=== PATIENT | male | born 1935 | race African-American/Black ===

== ENCOUNTER 2017-06-09 18:36 | Inpatient (IN) | payer MEDICARE, OTHER ==
[~2017-06-09] VITALS: Ht 177.8 cm; Wt 75.3 kg
[2017-06-09] MEDS ORDERED: ASPIRIN 81MG TABLET PO ONE (19:15)
[2017-06-09 20:42] LABS: BASOPHILS % 0.2 % (0.0-2.0); CHLORIDE 108 mEq/L (98-107); EOSINOPHILS % 0.3 % (0.0-5.0); HEMATOCRIT. 33.8 % (42.0-52.0); HEMOGLOBIN. 11.8 g/dL (14.0-18.0); LYMPHOCYTES % 49.9 % (20.0-50.0); MEAN CORPUSCULAR HEMOGLOBIN 31.1 pg (28.0-32.0); MEAN CORPUSCULAR VOLUME 88.9 fL (80.0-94.0); MEAN PLATELET VOLUME 10.1 fl (7.4-10.4); MONOCYTES % 8.8 % (2.0-8.0); NEUTROPHILS % 40.8 % (40.0-76.0); PLATELET 101 x1000/uL (130-400); RED CELL DISTRIBUTION WIDTH 14.7 % (11.6-14.6)
[2017-06-09 20:44] LABS: INR 1.3
[2017-06-09 20:47] LABS: ETHANOL BLOOD < 10 mg/dL
[2017-06-09] MEDS ORDERED: SODIUM CHLORIDE 0.9% 1000ML BAG (SEPSIS BOLUS) IV ONE (21:15)
[2017-06-09] MEDS ORDERED: MECLIZINE 25MG TABLET PO ONE (21:45)
[2017-06-09 22:49] LABS: CLARITY URINE CLEAR (CLEAR); COLOR URINE YELLOW (YELLOW); KETONES URINE NEGATIVE (NEGATIVE); LEUKOCYTE ESTERASE URINE NEGATIVE (NEGATIVE); NITRITE URINE NEGATIVE (NEGATIVE); OCCULT BLOOD URINE NEGATIVE (NEGATIVE); PH URINE >=9.0 (4.5-8.0); PROTEIN URINE NEGATIVE (NEGATIVE); SPECIFIC GRAVITY URINE 1.016 (1.005-1.030)
[2017-06-09 23:00] LABS: *AMPHETAMINES SCREEN URINE NEGATIVE (NEGATIVE); *BARBITURATES SCREEN URINE NEGATIVE (NEGATIVE); *BENZODIAZEPINES SCREEN URINE NEGATIVE (NEGATIVE); *COCAINE SCREEN URINE NEGATIVE (NEGATIVE); CANNABINOID URINE SCREEN NEGATIVE (NEGATIVE); METHADONE URINE SCREEN NEGATIVE (NEGATIVE); OPIATES URINE SCREEN NEGATIVE (NEGATIVE); PHENCYCLIDINE URINE SCREEN NEGATIVE (NEGATIVE)
[2017-06-09] MEDS ORDERED: HYDROCODONE/ACETAMINOPHEN 5/325MG TABLET PO PRN (23:15)
[2017-06-09] MEDS ORDERED: GUAIFENESIN 200MG/10ML SUGAR FREE UDC PO PRN (23:15)
[2017-06-09] MEDS ORDERED: ACETAMINOPHEN 650MG/20.3ML UDC GT PRN (23:15)
[2017-06-09] MEDS ORDERED: DOCUSATE SODIUM 100MG CAPSULE PO PRN (23:15)
[2017-06-09] MEDS ORDERED: ACETAMINOPHEN 325MG TABLET PO PRN (23:15)
[2017-06-09] MEDS ORDERED: ACETAMINOPHEN 650MG SUPP PR PRN (23:15)
[2017-06-09] MEDS ORDERED: CLONIDINE 0.1MG TABLET PO PRN (23:15)
[2017-06-09] MEDS ORDERED: IPRATROPIUM/ALBUTEROL 0.5-3(2.5)MG/3ML NEB INH PRN (23:15)
[2017-06-09] MEDS ORDERED: DIPHENHYDRAMINE 50MG/ML VIAL IV PRN (23:15)
[2017-06-09] MEDS ORDERED: ENOXAPARIN 40MG/0.4ML SYR SUBCUT SCH (23:15)
[2017-06-09] MEDS ORDERED: MAGNESIUM/ALUMINUM HYDROXIDE/SIMETHICONE 30ML UDC PO PRN (23:15)
[2017-06-09] MEDS ORDERED: ONDANSETRON HCL 4MG/2ML VIAL IV PRN (23:15)
[2017-06-09] MEDS ORDERED: NA PHOS,M-B/NA PHOS,DI-BA ENEMA 118ML PR PRN (23:15)
[2017-06-09] MEDS: AMLODIPINE 5MG TABLET PO SCH (23:45)
[2017-06-09] MEDS ORDERED: AMLODIPINE 5MG TABLET PO NR (23:45)
[2017-06-10] VITALS (7 sets, daily range): BP systolic 133–188; BP diastolic 58–76
[2017-06-10] MEDS ORDERED: LEVOFLOXACIN 750MG PREMIX 150 ML IV NR (01:15)
[2017-06-10 05:53] LABS: BASOPHILS % 0.1 % (0.0-2.0); EOSINOPHILS % 0.7 % (0.0-5.0); HEMATOCRIT. 32.5 % (42.0-52.0); HEMOGLOBIN. 10.9 g/dL (14.0-18.0); LYMPHOCYTES % 38.3 % (20.0-50.0); MEAN CORPUSCULAR HEMOGLOBIN 29.9 pg (28.0-32.0); MEAN CORPUSCULAR VOLUME 88.9 fL (80.0-94.0); MEAN PLATELET VOLUME 10.4 fl (7.4-10.4); MONOCYTES % 11.7 % (2.0-8.0); NEUTROPHILS % 49.2 % (40.0-76.0); PLATELET 99 x1000/uL (130-400); RED BLOOD CELL COUNT 3.65 mill/uL (4.7-6.1); RED CELL DISTRIBUTION WIDTH 14.6 % (11.6-14.6)
[2017-06-10] MEDS: SODIUM CHLORIDE 0.9% INJ 3ML FLUSH IVF SCH ×3 (06:26→21:00)
[2017-06-10 06:51] LABS: CHLORIDE 112 mEq/L (98-107)
[2017-06-10 07:00] LABS: CREATINE KINASE 499 IU/L (39-308); HDL CHOLESTEROL 57 mg/dL (40-59); LDL CHOLESTEROL 57 mg/dL (5-100)
[2017-06-10] MEDS: AMLODIPINE 5MG TABLET PO SCH (08:36)
[2017-06-10] MEDS ORDERED: ENOXAPARIN 40MG/0.4ML SYR SUBCUT SCH (09:00)
[2017-06-10 11:02] LABS: T4 FREE 0.93 ng/dL (0.76-1.46)
[2017-06-10] MEDS ORDERED: IOHEXOL-350 100 ML BOTTLE ONE (15:01)
[2017-06-10] MEDS: VALPROIC ACID 250MG CAPSULE PO SCH (15:21)
[2017-06-10] MEDS: AZITHROMYCIN 500 MG TABLET PO SCH (15:21)
[2017-06-10] MEDS: LOSARTAN POTASSIUM 25 MG TABLET PO SCH (15:21)
[2017-06-10] MEDS: TAMSULOSIN HCL 0.4MG SR CAPSULE PO SCH (15:42)
[2017-06-10] MEDS ORDERED: NON FORMULARY PATIENT HOME MED EA XX SCH (16:15)
[2017-06-10] MEDS: FINASTERIDE 5MG TABLET PO SCH (16:23)
[2017-06-10 17:03] LABS: CREATINE KINASE 500 IU/L (39-308)
[2017-06-10] MEDS: SODIUM CHLORIDE 0.45% 1,000 ML IV SCH (17:24)
[2017-06-10] MEDS ORDERED: DOXAZOSIN MESYLATE 2MG TABLET PO SCH (21:00)
[2017-06-10] MEDS ORDERED: TEMAZEPAM 15MG CAPSULE PO PRN (21:00)
[2017-06-11 00:02] VITALS: BP 130/67
[2017-06-11] MEDS: VALPROIC ACID 250MG CAPSULE PO SCH ×2 (03:32→17:41)
[2017-06-11 04:00] VITALS: BP 140/76
[2017-06-11] MEDS: SODIUM CHLORIDE 0.9% INJ 3ML FLUSH IVF SCH ×2 (05:07→14:00)
[2017-06-11 07:36] VITALS: BP 143/70
[2017-06-11] MEDS ORDERED: CITALOPRAM HYDROBROMIDE 20MG TABLET PO SCH (09:00)
[2017-06-11] MEDS: AZITHROMYCIN 500 MG TABLET PO SCH (10:53)
[2017-06-11] MEDS: TAMSULOSIN HCL 0.4MG SR CAPSULE PO SCH (10:54)
[2017-06-11] MEDS: FINASTERIDE 5MG TABLET PO SCH (10:59)
[2017-06-11] MEDS: AMLODIPINE 5MG TABLET PO SCH (11:11)
[2017-06-11 11:36] VITALS: BP 149/67
[2017-06-11 16:22] VITALS: BP 105/49
[2017-06-11] MEDS: SODIUM CHLORIDE 0.45% 1,000 ML IV SCH (17:00)
[2017-06-11] MEDS: LOSARTAN POTASSIUM 25 MG TABLET PO SCH (17:41)
== END 2017-06-11 18:48 | disposition home health service (06) | DRG 202 ==
LOC: ER 18:42 → 6WST 21:31 → ENRESERV 23:36
PROVIDERS: ADMIT Internal Medicine; ATTEND Internal Medicine
DX: J20.9 Acute bronchitis, unspecified (principal); Q28.2 Arteriovenous malformation of cerebral vessels; E87.2 Acidosis; D64.9 Anemia, unspecified; F03.90 Unspecified dementia, unspecified severity, without behavioral disturbance, psychotic disturbance, mood disturbance, and anxiety; G40.909 Epilepsy, unspecified, not intractable, without status epilepticus; H54.7 Unspecified visual loss; I10 Essential (primary) hypertension; N40.1 Benign prostatic hyperplasia with lower urinary tract symptoms; Z85.118 Personal history of other malignant neoplasm of bronchus and lung; Z86.73 Personal history of transient ischemic attack (TIA), and cerebral infarction without residual deficits; Z88.6 Allergy status to analgesic agent; Z90.2 Acquired absence of lung [part of]; Z92.21 Personal history of antineoplastic chemotherapy; Z88.8 Allergy status to other drugs, medicaments and biological substances
CPT/HCPCS: 36415; 70450; 71045; 71275; 80053; 80061; 80165; 80305; 81003; 82550; 82553; 83036; 83605; 83690; 83880; 84153; 84439; 84443; 84484; 85025; 85379; 85610; 87040; 93005; 93306; 93970; G0482; J1200; J1956; J8597; Q9967; A4315

== ENCOUNTER 2017-12-11 16:44 | Inpatient (IN) | payer MEDICARE, OTHER ==
[~2017-12-11] VITALS: Ht 188 cm; Wt 60.8 kg
[2017-12-11] MEDS ORDERED: SODIUM CHLORIDE 0.9% 1000ML BAG (SEPSIS BOLUS) IV ONE (17:30)
[2017-12-11 18:18] LABS: BASOPHILS % 0.3 % (0.0-2.0); EOSINOPHILS % 0.4 % (0.0-5.0); HEMATOCRIT. 33.7 % (42.0-52.0); HEMOGLOBIN. 11.2 g/dL (14.0-18.0); LYMPHOCYTES % 35.7 % (20.0-50.0); MEAN CORPUSCULAR VOLUME 87.3 fL (80.0-94.0); MEAN PLATELET VOLUME 10.3 fl (7.4-10.4); MONOCYTES % 4.7 % (2.0-8.0); NEUTROPHILS % 58.9 % (40.0-76.0); PLATELET 114 x1000/uL (130-400); RED BLOOD CELL COUNT 3.87 mill/uL (4.7-6.1); RED CELL DISTRIBUTION WIDTH 16.8 % (11.6-14.6)
[2017-12-11 18:25] LABS: CHLORIDE 106 mEq/L (98-107); INR 1.2; PROTHROMBIN TIME 11.8 sec (9.1-11.1)
[2017-12-11] MEDS ORDERED: VANCOMYCIN 1 G PREMIX 200 ML IV ONE (18:45)
[2017-12-11] MEDS ORDERED: PIPERACILLIN/TAZ 3.375G PREMIX 50 ML IV ONE (18:45)
[2017-12-11 20:01] LABS: CLARITY URINE CLOUDY (CLEAR); COLOR URINE ORANGE (YELLOW); KETONES URINE 1+ (NEGATIVE); LEUKOCYTE ESTERASE URINE 3+ (NEGATIVE); NITRITE URINE NEGATIVE (NEGATIVE); OCCULT BLOOD URINE 3+ (NEGATIVE); PH URINE >=9.0 (4.5-8.0); PROTEIN URINE 1+ (NEGATIVE); SPECIFIC GRAVITY URINE 1.012 (1.005-1.030)
[2017-12-12] VITALS (18 sets, daily range): BP systolic 120–157; BP diastolic 59–80
[2017-12-12] MEDS ORDERED: DIVA-75 MT (01:26)
[2017-12-12] MEDS ORDERED: SIMV40TA5 MT (01:26)
[2017-12-12] MEDS ORDERED: ALPHAGAN 0.1% OP (01:26)
[2017-12-12] MEDS ORDERED: FINA5TAB11 MT (01:26)
[2017-12-12] MEDS ORDERED: ERGO400C MT (01:26)
[2017-12-12] MEDS ORDERED: XALAO EACHEYE (01:27)
[2017-12-12] MEDS ORDERED: MORPHINE SULFATE 4 MG/ML CPJ (NOT FOR IM USE) IV PRN (02:15)
[2017-12-12] MEDS ORDERED: PIPERACILLIN/TAZ 3.375G PREMIX 50 ML IV SCH (02:15)
[2017-12-12] MEDS: PIPERACILLIN/TAZ 3.375G PREMIX 50 ML IV SCH ×4 (02:59→21:41)
[2017-12-12] MEDS: DEXT 5%/0.45% NACL KCL 20MEQ/L 1,000 ML IV SCH ×2 (03:51→15:26)
[2017-12-12] MEDS ORDERED: VANCOMYCIN 1500MG in DEXTROSE 5% WATER 250ML IV SCH (06:00)
[2017-12-12] MEDS: BRIMONIDINE 0.2% OPHTH DROPS 5ML EACHEYE SCH ×2 (08:16→16:51)
[2017-12-12] MEDS: DIVALPROEX SODIUM 500MG DR TABLET PO SCH ×2 (08:17→16:50)
[2017-12-12] MEDS ORDERED: ALPHAGAN 0.1% OP SCH (09:00)
[2017-12-12 11:42] LABS: AMMONIA 17 uMol/L (<32)
[2017-12-12] MEDS ORDERED: IPRATROPIUM/ALBUTEROL 0.5-3(2.5)MG/3ML NEB HHN PRN (15:00)
[2017-12-12 17:09] LABS: AMMONIA 25 uMol/L (<32)
[2017-12-12] MEDS ORDERED: VANCOMYCIN 750 MG PREMIX 150 ML IV SCH (21:00)
[2017-12-12] MEDS ORDERED: MEDICATION NOT ON FORMULARY EA (Simvastatin 40 MG) PO SCH (21:00)
[2017-12-12] MEDS ORDERED: MEDICATION NOT ON FORMULARY EA (Finasteride 5 MG) PO SCH (21:00)
[2017-12-12] MEDS: IPRATROPIUM/ALBUTEROL 0.5-3(2.5)MG/3ML NEB HHN SCH (21:01)
[2017-12-12] MEDS: LATANOPROST 0.005% OPHTH DROPS 2.5ML EACHEYE SCH (21:51)
[2017-12-12] MEDS: FINASTERIDE 5MG TABLET PO SCH (21:53)
[2017-12-12] MEDS: ATORVASTATIN CALCIUM 20MG TABLET PO SCH (21:53)
[2017-12-13] VITALS (15 sets, daily range): BP systolic 114–150; BP diastolic 50–82
[2017-12-13] MEDS: DEXT 5%/0.45% NACL KCL 20MEQ/L 1,000 ML IV SCH ×3 (01:58→19:30)
[2017-12-13] MEDS: IPRATROPIUM/ALBUTEROL 0.5-3(2.5)MG/3ML NEB HHN SCH ×4 (02:33→20:55)
[2017-12-13] MEDS: PIPERACILLIN/TAZ 3.375G PREMIX 50 ML IV SCH ×4 (04:20→20:47)
[2017-12-13 07:27] LABS: HEMATOCRIT. 31.7 % (42.0-52.0); HEMOGLOBIN. 10.8 g/dL (14.0-18.0); MEAN CORPUSCULAR HEMOGLOBIN 29.5 pg (28.0-32.0); MEAN CORPUSCULAR VOLUME 86.9 fL (80.0-94.0); MEAN PLATELET VOLUME 10.1 fl (7.4-10.4); PLATELET 105 x1000/uL (130-400); RED BLOOD CELL COUNT 3.65 mill/uL (4.7-6.1); RED CELL DISTRIBUTION WIDTH 16.2 % (11.6-14.6)
[2017-12-13 07:48] LABS: CHLORIDE 103 mEq/L (98-107)
[2017-12-13] MEDS: DIVALPROEX SODIUM 500MG DR TABLET PO SCH ×2 (08:24→17:09)
[2017-12-13] MEDS: BRIMONIDINE 0.2% OPHTH DROPS 5ML EACHEYE SCH ×2 (08:24→17:09)
[2017-12-13 10:04] LABS: PLATELET ESTIMATE DECREASED
[2017-12-13] MEDS ORDERED: POTASSIUM CHLORIDE INJ 40 MEQ in DEXT 5% WATER 250 ML IV SCH (11:00)
[2017-12-13] MEDS: LATANOPROST 0.005% OPHTH DROPS 2.5ML EACHEYE SCH (20:47)
[2017-12-13] MEDS: ATORVASTATIN CALCIUM 20MG TABLET PO SCH (20:47)
[2017-12-13] MEDS: FINASTERIDE 5MG TABLET PO SCH (20:47)
[2017-12-13] MEDS ORDERED: CEFTRIAXONE 1 G PREMIX 50 ML IV SCH (23:00)
[2017-12-14] VITALS (12 sets, daily range): BP systolic 96–141; BP diastolic 53–65
[2017-12-14] MEDS: PIPERACILLIN/TAZ 3.375G PREMIX 50 ML IV SCH ×2 (02:41→08:46)
[2017-12-14] MEDS: IPRATROPIUM/ALBUTEROL 0.5-3(2.5)MG/3ML NEB HHN SCH ×5 (05:00→21:25)
[2017-12-14 07:45] LABS: HEMATOCRIT. 30.4 % (42.0-52.0); HEMOGLOBIN. 10.5 g/dL (14.0-18.0); MEAN CORPUSCULAR HEMOGLOBIN 30.1 pg (28.0-32.0); MEAN CORPUSCULAR VOLUME 87.4 fL (80.0-94.0); MEAN PLATELET VOLUME 10.1 fl (7.4-10.4); PLATELET 99 x1000/uL (130-400); RED BLOOD CELL COUNT 3.48 mill/uL (4.7-6.1); RED CELL DISTRIBUTION WIDTH 16.4 % (11.6-14.6)
[2017-12-14 08:14] LABS: CHLORIDE 105 mEq/L (98-107)
[2017-12-14] MEDS: DEXT 5%/0.45% NACL KCL 20MEQ/L 1,000 ML IV SCH ×2 (08:32→16:30)
[2017-12-14] MEDS: BRIMONIDINE 0.2% OPHTH DROPS 5ML EACHEYE SCH ×2 (08:46→16:57)
[2017-12-14] MEDS: DIVALPROEX SODIUM 500MG DR TABLET PO SCH ×2 (08:46→16:57)
[2017-12-14 14:53] LABS: PLATELET ESTIMATE DECREASED
[2017-12-14] MEDS: LEVOFLOXACIN 500MG PREMIX 100 ML IV SCH (16:57)
[2017-12-14] MEDS ORDERED: DEXTROSE 50% WATER 50ML SYRINGE IV PRN (19:00)
[2017-12-14] MEDS: LATANOPROST 0.005% OPHTH DROPS 2.5ML EACHEYE SCH (20:21)
[2017-12-14] MEDS: ATORVASTATIN CALCIUM 20MG TABLET PO SCH (20:21)
[2017-12-14] MEDS: FINASTERIDE 5MG TABLET PO SCH (20:21)
[2017-12-14] MEDS ORDERED: INSULIN LISPRO 100 UNITS/ML SUBCUT SCH (21:00)
[2017-12-14] MEDS: BLOOD SUGAR DIAGNOSTIC STRIP TEST SCH (23:37)
[2017-12-14] MEDS: INSULIN LISPRO 100 UNITS/ML SUBCUT SCH (23:38)
[2017-12-15] VITALS (12 sets, daily range): BP systolic 135–169; BP diastolic 64–88
[2017-12-15] MEDS: IPRATROPIUM/ALBUTEROL 0.5-3(2.5)MG/3ML NEB HHN SCH ×4 (01:18→20:53)
[2017-12-15] MEDS: DEXT 5%/0.45% NACL KCL 20MEQ/L 1,000 ML IV SCH ×3 (02:17→20:35)
[2017-12-15] MEDS: INSULIN LISPRO 100 UNITS/ML SUBCUT SCH ×3 (05:34→17:28)
[2017-12-15] MEDS: BLOOD SUGAR DIAGNOSTIC STRIP TEST SCH ×3 (05:34→17:28)
[2017-12-15 08:14] LABS: HEMATOCRIT. 30.4 % (42.0-52.0); MEAN CORPUSCULAR HEMOGLOBIN 29.2 pg (28.0-32.0); MEAN CORPUSCULAR VOLUME 88.7 fL (80.0-94.0); MEAN PLATELET VOLUME 10.6 fl (7.4-10.4); PLATELET 98 x1000/uL (130-400); RED BLOOD CELL COUNT 3.43 mill/uL (4.7-6.1); RED CELL DISTRIBUTION WIDTH 16.7 % (11.6-14.6)
[2017-12-15 08:42] LABS: CHLORIDE 105 mEq/L (98-107)
[2017-12-15] MEDS: BRIMONIDINE 0.2% OPHTH DROPS 5ML EACHEYE SCH ×2 (10:39→17:45)
[2017-12-15] MEDS: DIVALPROEX SODIUM 500MG DR TABLET PO SCH ×2 (10:39→17:45)
[2017-12-15] MEDS: LEVOFLOXACIN 500MG PREMIX 100 ML IV SCH (17:46)
[2017-12-15] MEDS: ATORVASTATIN CALCIUM 20MG TABLET PO SCH (20:35)
[2017-12-15] MEDS: LATANOPROST 0.005% OPHTH DROPS 2.5ML EACHEYE SCH (20:35)
[2017-12-15] MEDS: FINASTERIDE 5MG TABLET PO SCH (20:35)
[2017-12-16] VITALS (12 sets, daily range): BP systolic 120–164; BP diastolic 62–89
[2017-12-16] MEDS: IPRATROPIUM/ALBUTEROL 0.5-3(2.5)MG/3ML NEB HHN SCH ×3 (00:31→21:26)
[2017-12-16 06:23] LABS: PLATELET ESTIMATE SLIGHTLY DECREASED
[2017-12-16] MEDS: BLOOD SUGAR DIAGNOSTIC STRIP TEST SCH ×4 (06:40→17:30)
[2017-12-16] MEDS: INSULIN LISPRO 100 UNITS/ML SUBCUT SCH ×4 (06:40→17:30)
[2017-12-16] MEDS: DEXT 5%/0.45% NACL KCL 20MEQ/L 1,000 ML IV SCH (08:25)
[2017-12-16] MEDS: BRIMONIDINE 0.2% OPHTH DROPS 5ML EACHEYE SCH ×2 (08:26→17:30)
[2017-12-16] MEDS: VALPROATE SODIUM 250MG/5ML UDC PO SCH ×2 (11:33→17:31)
[2017-12-16] MEDS: ENOXAPARIN 40MG/0.4ML SYR SUBCUT SCH (11:35)
[2017-12-16] MEDS: PIPERACILLIN/TAZ 3.375G PREMIX 50 ML IV SCH ×2 (15:24→22:10)
[2017-12-16] MEDS: LATANOPROST 0.005% OPHTH DROPS 2.5ML EACHEYE SCH (21:17)
[2017-12-16] MEDS: FINASTERIDE 5MG TABLET PO SCH (21:17)
[2017-12-16] MEDS: ATORVASTATIN CALCIUM 20MG TABLET PO SCH (21:17)
[2017-12-17] VITALS (12 sets, daily range): BP systolic 107–150; BP diastolic 52–86
[2017-12-17] MEDS: BLOOD SUGAR DIAGNOSTIC STRIP TEST SCH ×4 (00:10→17:17)
[2017-12-17] MEDS: IPRATROPIUM/ALBUTEROL 0.5-3(2.5)MG/3ML NEB HHN SCH ×3 (02:30→20:28)
[2017-12-17] MEDS: PIPERACILLIN/TAZ 3.375G PREMIX 50 ML IV SCH ×3 (05:43→21:28)
[2017-12-17] MEDS: INSULIN LISPRO 100 UNITS/ML SUBCUT SCH ×4 (06:00→17:34)
[2017-12-17 07:09] LABS: BASOPHILS % 0.5 % (0.0-2.0); EOSINOPHILS % 0.6 % (0.0-5.0); HEMATOCRIT. 30.4 % (42.0-52.0); HEMOGLOBIN. 10.3 g/dL (14.0-18.0); LYMPHOCYTES % 8.6 % (20.0-50.0); MEAN CORPUSCULAR HEMOGLOBIN 29.6 pg (28.0-32.0); MEAN CORPUSCULAR VOLUME 87.3 fL (80.0-94.0); MEAN PLATELET VOLUME 9.6 fl (7.4-10.4); NEUTROPHILS % 80.3 % (40.0-76.0); PLATELET 141 x1000/uL (130-400); RED BLOOD CELL COUNT 3.49 mill/uL (4.7-6.1); RED CELL DISTRIBUTION WIDTH 16.2 % (11.6-14.6)
[2017-12-17 07:14] LABS: CHLORIDE 101 mEq/L (98-107)
[2017-12-17] MEDS: BRIMONIDINE 0.2% OPHTH DROPS 5ML EACHEYE SCH ×2 (08:32→17:16)
[2017-12-17] MEDS: ENOXAPARIN 40MG/0.4ML SYR SUBCUT SCH (08:32)
[2017-12-17] MEDS: VALPROATE SODIUM 250MG/5ML UDC PO SCH ×2 (08:32→17:17)
[2017-12-17] MEDS: ACETAMINOPHEN 650MG/20.3ML UDC PO PRN (09:44)
[2017-12-17 09:54] LABS: BG BASE EXCESS 4.3 mmol/L (-2.0-2.0); BG DEOXYHEMOGLOBIN 6.4 % (0.0-5.0); BG FRACTION INSPIRED OXYGEN 21; BG HCO3 ACT 27.4 mmol/L (22.0-26.0); BG METHEMOGLOBIN 0.3 % (0.0-1.5); BG OXYGEN SATURATION 93.6 % (92.0-98.5); BG OXYHEMOGLOBIN 93.3 % (94.0-97.0); BG PCO2 35.5 mmHg (35.0-45.0); BG PH 7.506 (7.350-7.450); BG PO2 65.2 mmHg (75.0-100.0); BG SAMPLE SITE RIGHT BRACHIAL; BG TOTAL HEMOGLOBIN 10.5 g/dL (12.0-18.0); BG VENT MODE ROOM AIR
[2017-12-17] MEDS: ACETYLCYSTEINE 100MG/ML 10% VIAL 4ML INH SCH (14:48)
[2017-12-17] MEDS: ATORVASTATIN CALCIUM 20MG TABLET PO SCH (21:27)
[2017-12-17] MEDS: LATANOPROST 0.005% OPHTH DROPS 2.5ML EACHEYE SCH (21:27)
[2017-12-17] MEDS: FINASTERIDE 5MG TABLET PO SCH (21:28)
[2017-12-18] VITALS (9 sets, daily range): BP systolic 101–136; BP diastolic 54–76
[2017-12-18] MEDS: BLOOD SUGAR DIAGNOSTIC STRIP TEST SCH ×5 (00:15→23:18)
[2017-12-18] MEDS: IPRATROPIUM/ALBUTEROL 0.5-3(2.5)MG/3ML NEB HHN SCH ×6 (00:20→21:34)
[2017-12-18] MEDS: ACETYLCYSTEINE 100MG/ML 10% VIAL 4ML INH SCH ×4 (00:21→16:33)
[2017-12-18] MEDS: OMEPRAZOLE 20MG CAPSULE EXTENDED RELEASE PO SCH (05:49)
[2017-12-18] MEDS: PIPERACILLIN/TAZ 3.375G PREMIX 50 ML IV SCH ×3 (05:49→23:07)
[2017-12-18] MEDS: INSULIN LISPRO 100 UNITS/ML SUBCUT SCH ×5 (05:54→23:38)
[2017-12-18 06:57] LABS: HEMOGLOBIN. 9.4 g/dL (14.0-18.0); MEAN CORPUSCULAR HEMOGLOBIN 30.2 pg (28.0-32.0); MEAN CORPUSCULAR VOLUME 86.6 fL (80.0-94.0); MEAN PLATELET VOLUME 9.5 fl (7.4-10.4); PLATELET 154 x1000/uL (130-400); RED BLOOD CELL COUNT 3.12 mill/uL (4.7-6.1); RED CELL DISTRIBUTION WIDTH 15.8 % (11.6-14.6)
[2017-12-18 07:18] LABS: CHLORIDE 102 mEq/L (98-107)
[2017-12-18 07:30] LABS: TOTAL IRON BINDING CAPACITY 162 ug/dL (250-450)
[2017-12-18] MEDS: BRIMONIDINE 0.2% OPHTH DROPS 5ML EACHEYE SCH ×2 (08:05→21:05)
[2017-12-18 08:10] LABS: FOLIC ACID (FOLATE) SERUM 8.6 ng/mL (>5.38)
[2017-12-18] MEDS: VALPROATE SODIUM 250MG/5ML UDC PO SCH ×2 (08:12→18:00)
[2017-12-18] MEDS: ENOXAPARIN 40MG/0.4ML SYR SUBCUT SCH (09:00)
[2017-12-18] MEDS ORDERED: BISACODYL 10MG SUPP PR NR (11:30)
[2017-12-18] MEDS ORDERED: BISACODYL 10MG SUPP PR PRN (11:30)
[2017-12-18 16:21] LABS: PLATELET ESTIMATE NORMAL
[2017-12-18] MEDS: LATANOPROST 0.005% OPHTH DROPS 2.5ML EACHEYE SCH (21:05)
[2017-12-18] MEDS: ACETAMINOPHEN 650MG/20.3ML UDC PO PRN (21:05)
[2017-12-18] MEDS: ATORVASTATIN CALCIUM 20MG TABLET PO SCH (21:05)
[2017-12-18] MEDS: FINASTERIDE 5MG TABLET PO SCH (21:05)
[2017-12-19] VITALS: BP 103/54
[2017-12-19] MEDS: IPRATROPIUM/ALBUTEROL 0.5-3(2.5)MG/3ML NEB HHN SCH ×6 (01:17→20:36)
[2017-12-19] MEDS: AMPICILLIN 1,000 MG in SODIUM CHLORIDE 0.9% 50 ML IV SCH ×4 (02:00→18:45)
[2017-12-19 04:00] VITALS: BP 129/56
[2017-12-19] MEDS: INSULIN LISPRO 100 UNITS/ML SUBCUT SCH ×3 (06:00→18:00)
[2017-12-19] MEDS: OMEPRAZOLE 20MG CAPSULE EXTENDED RELEASE PO SCH (06:24)
[2017-12-19] MEDS: BLOOD SUGAR DIAGNOSTIC STRIP TEST SCH ×3 (06:24→18:46)
[2017-12-19 07:23] LABS: BASOPHILS % 0.2 % (0.0-2.0); EOSINOPHILS % 0.7 % (0.0-5.0); HEMOGLOBIN. 8.7 g/dL (14.0-18.0); LYMPHOCYTES % 9.9 % (20.0-50.0); MEAN PLATELET VOLUME 8.8 fl (7.4-10.4); MONOCYTES % 7.7 % (2.0-8.0); NEUTROPHILS % 81.5 % (40.0-76.0); PLATELET 169 x1000/uL (130-400); RED BLOOD CELL COUNT 2.91 mill/uL (4.7-6.1); RED CELL DISTRIBUTION WIDTH 15.8 % (11.6-14.6)
[2017-12-19 07:26] LABS: CHLORIDE 102 mEq/L (98-107)
[2017-12-19 08:00] VITALS: BP 121/66
[2017-12-19] MEDS: ACETYLCYSTEINE 100MG/ML 10% VIAL 4ML INH SCH (08:50)
[2017-12-19] MEDS: ENOXAPARIN 40MG/0.4ML SYR SUBCUT SCH ×2 (09:00→09:56)
[2017-12-19] MEDS: VALPROATE SODIUM 250MG/5ML UDC PO SCH ×2 (09:56→18:45)
[2017-12-19] MEDS: DOCUSATE SODIUM 250MG CAPSULE PO SCH (09:57)
[2017-12-19] MEDS: BRIMONIDINE 0.2% OPHTH DROPS 5ML EACHEYE SCH ×2 (09:57→18:46)
[2017-12-19 11:46] VITALS: BP 116/60
[2017-12-19 16:00] VITALS: BP 120/60
[2017-12-19 20:00] VITALS: BP 135/55
[2017-12-19] MEDS: ACETAMINOPHEN 650MG/20.3ML UDC PO PRN (21:32)
[2017-12-19] MEDS: ATORVASTATIN CALCIUM 20MG TABLET PO SCH (21:33)
[2017-12-19] MEDS: FINASTERIDE 5MG TABLET PO SCH (21:36)
[2017-12-19] MEDS: LATANOPROST 0.005% OPHTH DROPS 2.5ML EACHEYE SCH (21:36)
[2017-12-20] VITALS: BP 111/57
[2017-12-20] MEDS: AMPICILLIN 1,000 MG in SODIUM CHLORIDE 0.9% 50 ML IV SCH ×4 (00:43→19:16)
[2017-12-20] MEDS: BLOOD SUGAR DIAGNOSTIC STRIP TEST SCH ×4 (00:43→17:01)
[2017-12-20] MEDS: ACETYLCYSTEINE 100MG/ML 10% VIAL 4ML INH SCH ×2 (01:06→20:46)
[2017-12-20] MEDS: IPRATROPIUM/ALBUTEROL 0.5-3(2.5)MG/3ML NEB HHN SCH ×6 (01:06→20:45)
[2017-12-20 04:00] VITALS: BP 121/62
[2017-12-20] MEDS: INSULIN LISPRO 100 UNITS/ML SUBCUT SCH ×4 (06:00→17:01)
[2017-12-20] MEDS: OMEPRAZOLE 20MG CAPSULE EXTENDED RELEASE PO SCH (06:24)
[2017-12-20] MEDS: VALPROATE SODIUM 250MG/5ML UDC PO SCH ×2 (08:23→17:12)
[2017-12-20] MEDS: DOCUSATE SODIUM 250MG CAPSULE PO SCH (08:23)
[2017-12-20] MEDS: IRON SUCROSE COMPLEX 100 MG/5 ML ML IV SCH (08:23)
[2017-12-20] MEDS: BRIMONIDINE 0.2% OPHTH DROPS 5ML EACHEYE SCH ×2 (08:23→17:12)
[2017-12-20 08:30] VITALS: BP 136/76
[2017-12-20] MEDS: ENOXAPARIN 40MG/0.4ML SYR SUBCUT SCH (08:39)
[2017-12-20 09:34] LABS: HEMATOCRIT. 26.5 % (42.0-52.0); HEMOGLOBIN. 9.1 g/dL (14.0-18.0); MEAN CORPUSCULAR HEMOGLOBIN 29.8 pg (28.0-32.0); MEAN PLATELET VOLUME 8.8 fl (7.4-10.4); PLATELET 213 x1000/uL (130-400); RED BLOOD CELL COUNT 3.05 mill/uL (4.7-6.1); RED CELL DISTRIBUTION WIDTH 15.8 % (11.6-14.6)
[2017-12-20 09:56] LABS: CHLORIDE 103 mEq/L (98-107)
[2017-12-20 12:00] VITALS: BP 116/62
[2017-12-20 13:41] LABS: PLATELET ESTIMATE NORMAL
[2017-12-20 16:00] VITALS: BP 118/60
[2017-12-20 20:00] VITALS: BP 133/61
[2017-12-20] MEDS: ATORVASTATIN CALCIUM 20MG TABLET PO SCH (21:19)
[2017-12-20] MEDS: LATANOPROST 0.005% OPHTH DROPS 2.5ML EACHEYE SCH (21:20)
[2017-12-20] MEDS: FINASTERIDE 5MG TABLET PO SCH (21:20)
[2017-12-21] VITALS: BP 123/53
[2017-12-21] MEDS: AMPICILLIN 1,000 MG in SODIUM CHLORIDE 0.9% 50 ML IV SCH ×4 (00:24→18:02)
[2017-12-21] MEDS: BLOOD SUGAR DIAGNOSTIC STRIP TEST SCH ×4 (00:24→17:24)
[2017-12-21] MEDS: IPRATROPIUM/ALBUTEROL 0.5-3(2.5)MG/3ML NEB HHN SCH ×6 (00:53→21:31)
[2017-12-21 04:00] VITALS: BP 113/66
[2017-12-21] MEDS: INSULIN LISPRO 100 UNITS/ML SUBCUT SCH ×4 (06:00→17:23)
[2017-12-21] MEDS: OMEPRAZOLE 20MG CAPSULE EXTENDED RELEASE PO SCH (06:21)
[2017-12-21 07:38] LABS: BASOPHILS % 0.3 % (0.0-2.0); EOSINOPHILS % 0.7 % (0.0-5.0); HEMATOCRIT. 25.4 % (42.0-52.0); HEMOGLOBIN. 8.7 g/dL (14.0-18.0); LYMPHOCYTES % 9.8 % (20.0-50.0); MEAN CORPUSCULAR HEMOGLOBIN 29.7 pg (28.0-32.0); MEAN CORPUSCULAR VOLUME 87.3 fL (80.0-94.0); MEAN PLATELET VOLUME 8.2 fl (7.4-10.4); MONOCYTES % 6.3 % (2.0-8.0); NEUTROPHILS % 82.9 % (40.0-76.0); PLATELET 242 x1000/uL (130-400); RED BLOOD CELL COUNT 2.91 mill/uL (4.7-6.1); RED CELL DISTRIBUTION WIDTH 15.5 % (11.6-14.6)
[2017-12-21 08:00] VITALS: BP_SYST 147; BP_SYST 152; BP_DIAS 61; BP_DIAS 85
[2017-12-21] MEDS: ACETYLCYSTEINE 100MG/ML 10% VIAL 4ML INH SCH ×4 (08:00→16:34)
[2017-12-21 08:53] LABS: CHLORIDE 106 mEq/L (98-107)
[2017-12-21] MEDS: ENOXAPARIN 40MG/0.4ML SYR SUBCUT SCH (09:00)
[2017-12-21] MEDS: DOCUSATE SODIUM 250MG CAPSULE PO SCH (09:00)
[2017-12-21] MEDS: IRON SUCROSE COMPLEX 100 MG/5 ML ML IV SCH (09:12)
[2017-12-21] MEDS: VALPROATE SODIUM 250MG/5ML UDC PO SCH ×2 (09:12→17:17)
[2017-12-21] MEDS: ACETAMINOPHEN 650MG/20.3ML UDC PO PRN (09:12)
[2017-12-21] MEDS: BRIMONIDINE 0.2% OPHTH DROPS 5ML EACHEYE SCH ×2 (09:15→17:17)
[2017-12-21 12:00] VITALS: BP 131/53
[2017-12-21 16:00] VITALS: BP_SYST 104; BP_SYST 112; BP_DIAS 56; BP_DIAS 62
[2017-12-21] MEDS: FINASTERIDE 5MG TABLET PO SCH (21:00)
[2017-12-21] MEDS: ATORVASTATIN CALCIUM 20MG TABLET PO SCH (21:00)
[2017-12-21] MEDS: LATANOPROST 0.005% OPHTH DROPS 2.5ML EACHEYE SCH (22:39)
[2017-12-22] VITALS (7 sets, daily range): BP systolic 103–170; BP diastolic 52–79
[2017-12-22] MEDS: AMPICILLIN 1,000 MG in SODIUM CHLORIDE 0.9% 50 ML IV SCH ×2 (00:01→07:51)
[2017-12-22] MEDS: BLOOD SUGAR DIAGNOSTIC STRIP TEST SCH ×3 (00:01→17:30)
[2017-12-22] MEDS: LORAZEPAM 2MG/ML CPJ IV PRN (01:08)
[2017-12-22] MEDS: IPRATROPIUM/ALBUTEROL 0.5-3(2.5)MG/3ML NEB HHN SCH ×5 (01:25→20:00)
[2017-12-22] MEDS: ACETYLCYSTEINE 100MG/ML 10% VIAL 4ML INH SCH (01:25)
[2017-12-22 07:00] LABS: HEMATOCRIT 27.9 % (42.0-52.0); HEMOGLOBIN 9.4 g/dL (14.0-18.0); MEAN CORPUSCULAR HEMOGLOBIN 29.5 pg (28.0-32.0); MEAN CORPUSCULAR VOLUME 87.3 fL (80.0-94.0); PLATELET 291 x1000/uL (130-400); RED BLOOD CELL COUNT 3.19 mill/uL (4.7-6.1); RED CELL DISTRIBUTION WIDTH 15.5 % (11.6-14.6)
[2017-12-22] MEDS: OMEPRAZOLE 20MG CAPSULE EXTENDED RELEASE PO SCH ×2 (07:10→08:30)
[2017-12-22 07:26] LABS: CHLORIDE 104 mEq/L (98-107)
[2017-12-22] MEDS: IRON SUCROSE COMPLEX 100 MG/5 ML ML IV SCH (08:36)
[2017-12-22] MEDS: VALPROATE SODIUM 250MG/5ML UDC PO SCH ×2 (08:36→17:24)
[2017-12-22] MEDS: BRIMONIDINE 0.2% OPHTH DROPS 5ML EACHEYE SCH ×2 (08:36→17:24)
[2017-12-22] MEDS: DOCUSATE SODIUM 250MG CAPSULE PO SCH (08:37)
[2017-12-22] MEDS: INSULIN LISPRO 100 UNITS/ML SUBCUT SCH ×3 (11:29→17:36)
[2017-12-22] MEDS: METRONIDAZOLE 500 MG PREMIX 100 ML IV SCH ×2 (12:45→21:21)
[2017-12-22] MEDS: CEFEPIME 2,000 MG in DEXT 5% WATER 100 ML IV SCH (12:45)
[2017-12-22] MEDS: FINASTERIDE 5MG TABLET PO SCH (21:00)
[2017-12-22] MEDS: LATANOPROST 0.005% OPHTH DROPS 2.5ML EACHEYE SCH (21:00)
[2017-12-22] MEDS: ATORVASTATIN CALCIUM 20MG TABLET PO SCH (21:21)
[2017-12-23] VITALS: BP 152/65
[2017-12-23] MEDS: ACETYLCYSTEINE 100MG/ML 10% VIAL 4ML INH SCH (00:21)
[2017-12-23] MEDS: CEFEPIME 2,000 MG in DEXT 5% WATER 100 ML IV SCH ×2 (00:26→13:23)
[2017-12-23] MEDS: BLOOD SUGAR DIAGNOSTIC STRIP TEST SCH ×5 (00:34→23:53)
[2017-12-23] MEDS: IPRATROPIUM/ALBUTEROL 0.5-3(2.5)MG/3ML NEB HHN SCH ×6 (00:47→20:20)
[2017-12-23 04:00] VITALS: BP 123/53
[2017-12-23] MEDS: METRONIDAZOLE 500 MG PREMIX 100 ML IV SCH ×3 (04:08→21:44)
[2017-12-23] MEDS: LORAZEPAM 2MG/ML CPJ IV PRN ×2 (05:04→21:57)
[2017-12-23] MEDS: INSULIN LISPRO 100 UNITS/ML SUBCUT SCH ×5 (06:00→23:53)
[2017-12-23 06:57] LABS: BASOPHILS % 0.2 % (0.0-2.0); HEMATOCRIT. 26.5 % (42.0-52.0); LYMPHOCYTES % 7.6 % (20.0-50.0); MEAN CORPUSCULAR HEMOGLOBIN 29.5 pg (28.0-32.0); MEAN CORPUSCULAR VOLUME 87.2 fL (80.0-94.0); MEAN PLATELET VOLUME 8.1 fl (7.4-10.4); MONOCYTES % 6.3 % (2.0-8.0); NEUTROPHILS % 85.9 % (40.0-76.0); PLATELET 298 x1000/uL (130-400); RED BLOOD CELL COUNT 3.04 mill/uL (4.7-6.1); RED CELL DISTRIBUTION WIDTH 14.9 % (11.6-14.6)
[2017-12-23 07:27] LABS: CHLORIDE 104 mEq/L (98-107)
[2017-12-23 08:00] VITALS: BP 150/73
[2017-12-23] MEDS: DOCUSATE SODIUM 250MG CAPSULE PO SCH (09:01)
[2017-12-23] MEDS: IRON SUCROSE COMPLEX 100 MG/5 ML ML IV SCH (09:01)
[2017-12-23] MEDS: VALPROATE SODIUM 250MG/5ML UDC PO SCH ×2 (09:01→17:16)
[2017-12-23] MEDS: BRIMONIDINE 0.2% OPHTH DROPS 5ML EACHEYE SCH ×2 (09:03→17:15)
[2017-12-23 12:00] VITALS: BP 115/62
[2017-12-23 16:00] VITALS: BP 116/62
[2017-12-23 20:00] VITALS: BP 161/75
[2017-12-23] MEDS: ATORVASTATIN CALCIUM 20MG TABLET PO SCH (21:43)
[2017-12-23] MEDS: LATANOPROST 0.005% OPHTH DROPS 2.5ML EACHEYE SCH (21:44)
[2017-12-23] MEDS: FINASTERIDE 5MG TABLET PO SCH (21:52)
[2017-12-24] VITALS: BP 135/55
[2017-12-24] MEDS: IPRATROPIUM/ALBUTEROL 0.5-3(2.5)MG/3ML NEB HHN SCH ×6 (00:21→20:27)
[2017-12-24] MEDS: ACETYLCYSTEINE 100MG/ML 10% VIAL 4ML INH SCH ×4 (00:22→20:26)
[2017-12-24] MEDS: CEFEPIME 2,000 MG in DEXT 5% WATER 100 ML IV SCH ×2 (01:11→15:16)
[2017-12-24 04:00] VITALS: BP 128/61
[2017-12-24] MEDS: METRONIDAZOLE 500 MG PREMIX 100 ML IV SCH ×3 (04:19→19:53)
[2017-12-24] MEDS: BLOOD SUGAR DIAGNOSTIC STRIP TEST SCH ×3 (05:59→17:55)
[2017-12-24] MEDS: INSULIN LISPRO 100 UNITS/ML SUBCUT SCH ×3 (05:59→17:55)
[2017-12-24] MEDS: OMEPRAZOLE 20MG CAPSULE EXTENDED RELEASE PO SCH (06:50)
[2017-12-24 08:00] VITALS: BP 117/84
[2017-12-24 08:21] LABS: HEMOGLOBIN. 9.9 g/dL (14.0-18.0); MEAN CORPUSCULAR HEMOGLOBIN 28.9 pg (28.0-32.0); MEAN CORPUSCULAR VOLUME 88.1 fL (80.0-94.0); MEAN PLATELET VOLUME 8.7 fl (7.4-10.4); PLATELET 348 x1000/uL (130-400); RED BLOOD CELL COUNT 3.41 mill/uL (4.7-6.1); RED CELL DISTRIBUTION WIDTH 15.2 % (11.6-14.6)
[2017-12-24] MEDS: IRON SUCROSE COMPLEX 100 MG/5 ML ML IV SCH (09:21)
[2017-12-24] MEDS: DOCUSATE SODIUM 250MG CAPSULE PO SCH (09:21)
[2017-12-24] MEDS: BRIMONIDINE 0.2% OPHTH DROPS 5ML EACHEYE SCH ×2 (09:21→18:03)
[2017-12-24] MEDS: VALPROATE SODIUM 250MG/5ML UDC PO SCH ×2 (09:21→18:03)
[2017-12-24 09:33] LABS: CHLORIDE 104 mEq/L (98-107)
[2017-12-24 09:45] LABS: PHOSPHORUS 1.9 mg/dL (2.5-4.9)
[2017-12-24 12:00] VITALS: BP 136/57
[2017-12-24 16:00] VITALS: BP 123/60
[2017-12-24 17:03] LABS: PLATELET ESTIMATE NORMAL
[2017-12-24 17:04] LABS: CLARITY URINE CLOUDY (CLEAR); COLOR URINE DARK YELLOW (YELLOW); KETONES URINE TRACE (NEGATIVE); LEUKOCYTE ESTERASE URINE 2+ (NEGATIVE); NITRITE URINE NEGATIVE (NEGATIVE); OCCULT BLOOD URINE 3+ (NEGATIVE); PH URINE 6.5 (4.5-8.0); PROTEIN URINE 2+ (NEGATIVE); SPECIFIC GRAVITY URINE 1.022 (1.005-1.030)
[2017-12-24] MEDS ORDERED: POTASSIUM PHOS,M-BASIC-D-BASIC 15 MMOL in DEXT 5% WATER 245 ML IV NR (18:00)
[2017-12-24] MEDS: ACETAMINOPHEN 650MG/20.3ML UDC PO PRN (18:03)
[2017-12-24 20:00] VITALS: BP 135/71
[2017-12-24] MEDS: ATORVASTATIN CALCIUM 20MG TABLET PO SCH (21:22)
[2017-12-24] MEDS: LATANOPROST 0.005% OPHTH DROPS 2.5ML EACHEYE SCH (21:22)
[2017-12-24] MEDS: FINASTERIDE 5MG TABLET PO SCH (21:22)
[2017-12-25] VITALS (8 sets, daily range): BP systolic 108–141; BP diastolic 52–110
[2017-12-25] MEDS: IPRATROPIUM/ALBUTEROL 0.5-3(2.5)MG/3ML NEB HHN SCH ×6 (00:17→20:03)
[2017-12-25] MEDS: CEFEPIME 2,000 MG in DEXT 5% WATER 100 ML IV SCH ×2 (00:24→13:00)
[2017-12-25] MEDS: ACETAMINOPHEN 650MG/20.3ML UDC PO PRN ×2 (03:46→19:13)
[2017-12-25] MEDS: METRONIDAZOLE 500 MG PREMIX 100 ML IV SCH ×3 (03:52→20:40)
[2017-12-25] MEDS: ACETYLCYSTEINE 100MG/ML 10% VIAL 4ML INH SCH ×2 (04:41→15:36)
[2017-12-25] MEDS: BLOOD SUGAR DIAGNOSTIC STRIP TEST SCH ×4 (06:00→18:05)
[2017-12-25] MEDS: OMEPRAZOLE 20MG CAPSULE EXTENDED RELEASE PO SCH (06:24)
[2017-12-25] MEDS: INSULIN LISPRO 100 UNITS/ML SUBCUT SCH ×4 (06:36→18:00)
[2017-12-25 07:22] LABS: HEMOGLOBIN. 8.6 g/dL (14.0-18.0); MEAN CORPUSCULAR HEMOGLOBIN 28.8 pg (28.0-32.0); MEAN CORPUSCULAR VOLUME 87.1 fL (80.0-94.0); MEAN PLATELET VOLUME 8.4 fl (7.4-10.4); PLATELET 330 x1000/uL (130-400); RED BLOOD CELL COUNT 2.98 mill/uL (4.7-6.1); RED CELL DISTRIBUTION WIDTH 15.3 % (11.6-14.6)
[2017-12-25 07:58] LABS: CHLORIDE 106 mEq/L (98-107)
[2017-12-25] MEDS: BRIMONIDINE 0.2% OPHTH DROPS 5ML EACHEYE SCH ×2 (09:20→18:14)
[2017-12-25] MEDS: DOCUSATE SODIUM 250MG CAPSULE PO SCH (09:20)
[2017-12-25] MEDS: VALPROATE SODIUM 250MG/5ML UDC PO SCH ×2 (09:20→18:14)
[2017-12-25 13:26] LABS: PLATELET ESTIMATE NORMAL
[2017-12-25] MEDS ORDERED: AMIODARONE HCL 150 MG in DEXT 5% WATER 100 ML IV NR (16:30)
[2017-12-25] MEDS ORDERED: AMIODARONE HCL 900 MG in DEXT 5% WATER 500 ML IV SCH (17:45)
[2017-12-25] MEDS ORDERED: VANCOMYCIN 1500MG in DEXTROSE 5% WATER 250ML IV NR (20:00)
[2017-12-25] MEDS: ATORVASTATIN CALCIUM 20MG TABLET PO SCH (20:38)
[2017-12-25] MEDS: LATANOPROST 0.005% OPHTH DROPS 2.5ML EACHEYE SCH (20:53)
[2017-12-25] MEDS: FINASTERIDE 5MG TABLET PO SCH (20:58)
[2017-12-25] MEDS ORDERED: LORAZEPAM 2MG/ML CPJ IV PRN (22:45)
[2017-12-26] VITALS (9 sets, daily range): BP systolic 115–154; BP diastolic 67–85
[2017-12-26] MEDS: IPRATROPIUM/ALBUTEROL 0.5-3(2.5)MG/3ML NEB HHN SCH ×5 (00:18→15:32)
[2017-12-26] MEDS: CEFEPIME 2,000 MG in DEXT 5% WATER 100 ML IV SCH (01:02)
[2017-12-26] MEDS: ACETYLCYSTEINE 100MG/ML 10% VIAL 4ML INH SCH ×2 (04:14→08:36)
[2017-12-26] MEDS: METRONIDAZOLE 500 MG PREMIX 100 ML IV SCH (04:50)
[2017-12-26] MEDS: BLOOD SUGAR DIAGNOSTIC STRIP TEST SCH ×2 (05:51)
[2017-12-26] MEDS: OMEPRAZOLE 20MG CAPSULE EXTENDED RELEASE PO SCH (05:53)
[2017-12-26] MEDS: INSULIN LISPRO 100 UNITS/ML SUBCUT SCH ×2 (05:58)
[2017-12-26 06:45] LABS: CHLORIDE 104 mEq/L (98-107)
[2017-12-26 06:49] LABS: HEMOGLOBIN. 9.1 g/dL (14.0-18.0); MEAN CORPUSCULAR HEMOGLOBIN 29.4 pg (28.0-32.0); MEAN CORPUSCULAR VOLUME 87.8 fL (80.0-94.0); MEAN PLATELET VOLUME 8.5 fl (7.4-10.4); PLATELET 356 x1000/uL (130-400); RED BLOOD CELL COUNT 3.08 mill/uL (4.7-6.1); RED CELL DISTRIBUTION WIDTH 15.5 % (11.6-14.6)
[2017-12-26] MEDS ORDERED: VANCOMYCIN 750 MG PREMIX 150 ML IV SCH (08:00)
[2017-12-26] MEDS: VALPROATE SODIUM 250MG/5ML UDC PO SCH (08:22)
[2017-12-26] MEDS: DOCUSATE SODIUM 250MG CAPSULE PO SCH (08:22)
[2017-12-26] MEDS: BRIMONIDINE 0.2% OPHTH DROPS 5ML EACHEYE SCH (08:23)
[2017-12-26 09:19] LABS: PLATELET ESTIMATE NORMAL
[2017-12-26] MEDS ORDERED: LORAZEPAM 2MG/ML CPJ IV PRN (10:45)
[2017-12-26] MEDS ORDERED: MORPHINE SULFATE 250 MG in DEXT 5% WATER 240 ML IV PRN (11:00)
[2017-12-26] MEDS: AMIODARONE HCL 200 MG TABLET NG SCH ×2 (11:33→21:14)
[2017-12-27] VITALS: BP 180/77
[2017-12-27] MEDS: IPRATROPIUM/ALBUTEROL 0.5-3(2.5)MG/3ML NEB HHN SCH ×2 (00:35→06:23)
[2017-12-27 04:00] VITALS: BP 70/30
[2017-12-27 06:56] LABS: HEMATOCRIT. 26.5 % (42.0-52.0); HEMOGLOBIN. 8.5 g/dL (14.0-18.0); MEAN CORPUSCULAR HEMOGLOBIN 29.5 pg (28.0-32.0); MEAN PLATELET VOLUME 8.4 fl (7.4-10.4); PLATELET 386 x1000/uL (130-400); RED BLOOD CELL COUNT 2.88 mill/uL (4.7-6.1); RED CELL DISTRIBUTION WIDTH 16.1 % (11.6-14.6)
[2017-12-27 07:02] LABS: CHLORIDE 108 mEq/L (98-107)
[2017-12-27] MEDS: AMIODARONE HCL 200 MG TABLET NG SCH (08:49)
[2017-12-27 12:45] LABS: PLATELET ESTIMATE NORMAL
== END 2017-12-27 08:00 | disposition expired | DRG 871 ==
LOC: ER 17:14 → 3WST 21:15 → ENRESERV 23:06 → 3WST 12-12 00:44 → 8WST 12-18 11:57 → 5EST 12-25 17:34 → 6EST 12-26 17:02
PROVIDERS: ADMIT Internal Medicine; ATTEND Internal Medicine
PROC: 4A00X4Z Measurement of Central Nervous Electrical Activity, External Approach (ICD-10-PCS; principal; 2017-12-17)
DX: A41.51 Sepsis due to Escherichia coli [E. coli] (principal); G93.41 Metabolic encephalopathy; J69.0 Pneumonitis due to inhalation of food and vomit; J96.00 Acute respiratory failure, unspecified whether with hypoxia or hypercapnia; E43 Unspecified severe protein-calorie malnutrition; Q28.2 Arteriovenous malformation of cerebral vessels; N39.0 Urinary tract infection, site not specified; I48.92 Unspecified atrial flutter; Z68.1 Body mass index [BMI] 19.9 or less, adult; I95.9 Hypotension, unspecified; Z66 Do not resuscitate; G40.909 Epilepsy, unspecified, not intractable, without status epilepticus; D63.8 Anemia in other chronic diseases classified elsewhere; E11.9 Type 2 diabetes mellitus without complications; F03.90 Unspecified dementia, unspecified severity, without behavioral disturbance, psychotic disturbance, mood disturbance, and anxiety; H40.9 Unspecified glaucoma; H54.3 Unqualified visual loss, both eyes; I10 Essential (primary) hypertension; I48.91 Unspecified atrial fibrillation; I77.819 Aortic ectasia, unspecified site; I80.9 Phlebitis and thrombophlebitis of unspecified site; R33.8 Other retention of urine; K59.00 Constipation, unspecified; N40.1 Benign prostatic hyperplasia with lower urinary tract symptoms; R13.10 Dysphagia, unspecified; R62.7 Adult failure to thrive; Z51.5 Encounter for palliative care; Z78.1 Physical restraint status; Z85.118 Personal history of other malignant neoplasm of bronchus and lung; Z86.73 Personal history of transient ischemic attack (TIA), and cerebral infarction without residual deficits; Z90.2 Acquired absence of lung [part of]; Z88.6 Allergy status to analgesic agent; Z88.8 Allergy status to other drugs, medicaments and biological substances
CPT/HCPCS: 36415; 36600; 70551; 71045; 74018; 80048; 80061; 80165; 82140; 82375; 82607; 82728; 82746; 82805; 82962; 83540; 83550; 83605; 83735; 84100; 84134; 84145; 84443; 85027; 87077; 87106; 87186; 92610; 93005; 93970; 94640; 94667; 96365; 96366; 96375; 97110; 97162; 97166; 97530; 99291; A6261; J0282; J0290; J0692; J1650; J1815; J1956; J2060; J2274; J2543; J3370; J3480; J3490; J7030; J7040; J7050; J7060; J7608; J7620; A4315